=== PATIENT | female | born 2000 | race Caucasian/White ===

== ENCOUNTER 2024-01-01 09:59 | Outpatient (AMB) | payer OTHER, SELFPAY ==
--- NOTE | 2024-01-01 10:07 | AM.OFFWIN_ITS ---
Intake Vital Signs 01/01/24 10:10 Height 5 ft 5 in Weight 202 lb BMI 33.6 BP 116/80 Blood Pressure Location Lt brachial Position Sitting Pulse 96 Pulse Source Pulse Oximeter Temp 98.0 F Temp Source Temporal Artery Scan Pulse Oximetry (%) 98 Oxygen Delivery Method Room Air Intake Visit Reasons: [employer] Sore throat, Coughing (masked) Intake Note: pt is here today for sore throat coughing started 1 week ago Patient Tobacco Use Status: Current everyday Tobacco user Allergies No Known Allergies Allergy (Verified 01/01/24 10:12) Medication List - Last Reconciled 01/01/24 by Brittany Ashton NP benzonatate 100 mg PO TID [id number]-JJ-bgjmoztdgtj 5-10-100 mg/5 mL (Adult Robitussin Peak Cold M-S) 10 mL PO Q4H PRN Do you need a note to return to daycare/school/sports/work: No HPI HPI Comments History of Present Illness Details 23 y/o female patient presents to walk i n clinic with c/o cough and sore throat for 1 week. Denies any sick contacts. Denies fevers, chills, nausea or vomiting. PFSH Social History Patient Tobacco Use Status: Current everyday Tobacco user Review of Systems Const All systems reviewed & are unremarkable except as noted in HPI and below Physical Exam Vital Signs: Last Vital Signs Temp 98.0 F 01/01/24 10:10 Pulse 96 01/01/24 10:10 BP 116/80 01/01/24 10:10 Pulse Ox 98 01/01/24 10:10 Oxygen Delivery Method Room Air 01/01/24 10:10 BMI result Body Mass Index 33.6 Const General: comfortable and no acute distress HEENT Head: Yes normocephalic Ears: external ears normal and TM's normal bilaterally General nose exam: Normal nasal mucous membranes and turbinates present and Nasal discharge present Face and sinus: Yes sinuses nontender Mouth: oropharynx normal and moist mucous membranes Throat: Yes posterior oropharynx normal Resp Effort & Inspection: normal respiratory effort Auscultation: clear to auscultation bilaterally Cardio Rate: regular rate Rhythm: regular rhythm Results AMB Rapid Strep AMB Rapid Strep Negative Last Edit by Jaziel Turner CMA on 01/01/24 10 :19 Results Reviewed Results Reviewed: Laboratory Last Values Strep Scn Rapid Clinic Negative 01/01/24 10:15 Assessment & Plan Assessment & Plan (1) URI, acute: Code(s): J06.9 - Acute upper respiratory infection, unspecified Plan: - SARs - OTC cold/cough remedies - Acetaminophen for relief. Orders: Orders AMB Rapid Strep Screen Today Z13.9 - Encounter for screening, unspecified SARS-CoV2/FLU/RSV Today J06.9 - Acute upper respiratory infection, unspecified Medications: New wdzqywldhmdni-VR-radpzychsaq 5-10-100 mg/5 mL (Adult Robitussin Peak Cold M-S) 10 mL PO Q4H PRN 237 mL 0RF cold symptoms benzonatate 100 mg PO TID 30 caps 0RF J06.9 - Acute upper respiratory infection, unspecified Coding Level of Care Code New Pt Level 4 (47532) Diagnoses URI, acute J06.9 Time Spent (min) 15
[2024-01-01 10:10] VITALS: BP 116/80; PULSE 96; TEMP 36.7; O2SAT 98; BMI 33.6
== END 2024-01-01 10:50 | disposition home or self-care (01) ==
PROVIDERS: Visit Provider Nurse Practitioner Family
DX: J06.9 Acute upper respiratory infection, unspecified (principal)
CPT/HCPCS: 87880; 99203

== ENCOUNTER 2024-01-01 13:04 | Outpatient (REF) | payer OTHER, SELFPAY ==
[2024-01-01 14:06] LABS: Influenza A PCR NEGATIVE (Negative); Influenza B PCR NEGATIVE (Negative); Resp Syncy Virus RNA Qual PCR NEGATIVE (Negative); SARS COV2 PCR INHOUSE POSITIVE (Negative)
== END 2024-01-01 13:05 | disposition home or self-care (01) ==
LOC: HO.HMGCLNP 13:04
PROVIDERS: Visit Provider Nurse Practitioner Family
DX: Z11.52 Encounter for screening for COVID-19 (principal); Z20.822 Contact with and (suspected) exposure to COVID-19; J06.9 Acute upper respiratory infection, unspecified
CPT/HCPCS: 0241U